=== PATIENT | male | born 1965 | race Caucasian/White ===

== ENCOUNTER 2017-04-17 19:05 | Emergency (ER) | payer OTHER, SELFPAY ==
[2017-04-17 19:05] VITALS: BP 142/97; PULSE 86; RESP 16; TEMP 36.8; O2SAT 97; BMI 31.3
== END 2017-04-17 22:03 | disposition left against medical advice (07) ==
LOC: ED 20:21
PROVIDERS: Emergency Provider Emergency Medicine; Family Provider Family Medicine; PCP Family Medicine
DX: R10.9 Unspecified abdominal pain (principal)

== ENCOUNTER 2017-04-18 04:39 | Emergency (ER) | payer OTHER, SELFPAY ==
[2017-04-18 04:40] VITALS: BP 185/99; PULSE 79; RESP 16; TEMP 36.7; O2SAT 97; BMI 31.1
--- NOTE | 2017-04-18 04:51 | CT_ITS ---
STUDY: CT ABDOMEN AND PELVIS WITH CONTRAST - VENOGRAM REASON FOR EXAM: Male, 52 years old. Left lower quadrant pain RADIATION DOSAGE (If Supplied By Facility): CTDIvol = ( 17.84 ) mGy, DLP = ( 1304.67 ) mGycm TECHNIQUE: Transaxial images were obtained from the dome of the diaphragm to the symphysis pubis without oral contrast. 100 ml of Isovue 300 contrast was administered. Multiplanar coronal and sagittal images were reformatted. CT venogram protocol utilized, with delayed images performed during venous phase. Individualized Dose Optimization Techniques Were Used For This CT. COMPARISON: None. FINDINGS: The visualized lung bases are unremarkable. The visualized portions of the heart are within normal limits. Normal liver. Normal gallbladder and extrahepatic biliary system. Normal spleen. Normal pancreas. Normal bilateral adrenal glands. Normal right kidney. Normal left kidney. Normal visualized stomach. Normal small intestine. There are multiple colonic diverticula consistent with diverticulosis. There is non-visualization of the appendix. Normal abdominal aorta. No retroperitoneal adenopathy. IVC is patent. Right gonadal vein measure mm and is patent. There are no bifurcating segments. Left gonadal vein measure mm and is patent. There are no bifurcating segments. Bilateral common iliac veins are widely patient without evidence of extrinsic compression or thrombus. Branches of the internal iliac veins show wide patency without evidence of varicosities. Bilateral external iliac veins and common femoral veins remain patent. Normal urinary bladder. Normal abdominal wall. There are diffuse degenerative changes of the visualized lumbar spine. CT/Abdomen/Pelvis W IV Cont ONLY IMPRESSION: Sigmoid diverticulosis without evidence of diverticulitis. Electronically Signed: Ayad Moise MD at 6:58 EST Tel , Service support ,
--- NOTE | 2017-04-18 05:00 | ED.VISSUMM ---
- ER Visit Summary Date of Service: 04/18/17 Chief Complaint: Left lower quadrant abdominal pain History of Present Illness: The patient is a 52 M resents to the emergency department with approximately 24 hours of left lower quadrant abdominal pain. The patient was diagnosed with influenza A Monday morning. He states he went to urgent care. He had a nasal swab which was positive for influenza. He was started on Tamiflu. He states that he took 2 doses on Monday, 2 doses on Monday, and 1 dose yesterday. He states after taking it, he began to have diffuse itching. He called his physician who instructed him to stop the medication and take Benadryl. He states that he was doing that, and he began to have cramping abdominal pain worse in his left lower quadrant. He states it comes in waves. He states he has never really had pain like this before. He did have some loose diarrhea but that has since resolved. He denies fever but has had some chills and sweats. He has had mild nausea. The pain does radiate to his flank at times. He denies dysuria or hematuria. His only surgical history is significant for prior appendectomy. Physical Examination: Vital signs reviewed General: Well-nourished, well-developed Head: Normocephalic, atraumatic Eyes: Pupils equal and reactive, extraocular muscles intact Neck, supple, no lymphadenopathy Heart: Regular rate and rhythm Respiratory: No distress, clear bilaterally Abdomen: Soft, mildly tender in the left lower quadrant without rebound or guarding, nondistended, no peritoneal signs Back: Nontender Extremities: Nontender, no edema, no cords Skin: Normal color no rash Neuro: Alert and oriented, no focal or lateralizing deficits Test Results: [] Emergency Department Course and Treatment: The patient presents with intermittent cramping left lower quadrant pain. He was recently diagnosed with influenza and did have allergic reaction to his Tamiflu. He has had some scant diarrhea. It was hard to re-create his pain on examination. IV was established. Patient was treated with fluids and analgesics with marked improvement of symptoms. His repeat exam was nontender. Patient's labs were unremarkable. I did send him for a CT with IV contrast. There is no evidence of colitis, perforation, or other dangerous process. I am unsure if this is more a side effect from his Tamiflu or even related to the influenza. The patient has had persistent diffuse itching. I am going to treat him with a short burst of steroids, Bentyl, and 1 day of analgesics. I did senior living sales counselor him concerning symptoms and reasons to return to the emergency department. I did instruct him that if his pain continues, worsens, or changes over the next 12-24 hours and he cannot get in to see his PCP, he should return. The patient is comfortable with this plan of care and will be discharged. Treatment Plan: [] Disposition: Discharge Impression:. Left lower quadrant abdominal pain-resolved 2. Allergic reaction to medication 3. Influenza This note was generated with [employer] dictation software. It may contain incorrect words, spelling, and punctuation that were not noted in review of the chart prior to signing ED Disposition - Plan for ED Patient: Chief Complaint: Abd Pain Instructions: ED Abdominal Pain Unkn Cause Prescriptions: Hydrocodone Bitart/Apap 5-325 [[place] 5/325] 1 tab PO Q6H PRN PRN 2 Days #6 tab PRN Reason: Pain Dicyclomine HCl [Bentyl] 20 mg PO TIDAC #20 cap Prednisone 10 mg PO UD #33 tab Referrals: Obey Jama MD [Primary Care Provider] -
[2017-04-18] MEDS: 0.9% Normal Saline 1,000 ML 1000 ML IV (05:07)
[2017-04-18] MEDS: Ondansetron 4 MG/2 ML Vial IV (05:07)
[2017-04-18 05:15] LABS: Bacteria 0 SEEN /hpf (None Seen); Mucous, Urine 0 SEEN /hpf (<or=2+); Red Blood Cells-Urine 0 SEEN /hpf (0-5); Squamous Epithelial Cells - UA 0 SEEN /hpf (0-5); White Blood Cells 0 SEEN /hpf (0-5)
[2017-04-18 05:18] LABS: Absolute Lymphocyte Count 2.56 X10^3/ul (0.83-4.51); Absolute Neutrophil Count 3.7 X10^3/uL (2.0-7.7); Basophil# 0.08 X10^3/uL; Eosinophil# 0.22 X10^3/uL; Eosinophils% 2.8 % (0-5); Hematocrit 43.9 % (40-54); Hemoglobin 14.9 g/dl (13.0-16.5); Lymphocyte # 2.56 X10^3/ul (4.0); Lymphocyte % 32.8 % (19-41); Mean Corp Hgb Conc 33.9 g/gl (32-36); Mean Corpuscular Volume 88.3 fL (80-94); Mean Platelet Vol. 10.2 fl (6.2-12.0); Monocyte% 15.4 % (0-10); Neutrophil # 3.74 X10^3/uL (2.7-7.7); Neutrophil % 47.9 % (47-70); Platelet Count 192 K/mm3 (150-450); RBC Distribution Width CV 12.6 % (11.6-14.6); RBC Distribution Width SD 39.9 fl (35.1-43.9); Red Blood Count 4.97 M/mm3 (4.6-6.2); White Blood Count 7.8 K/mm3 (4.4-11.0)
[2017-04-18 05:19] LABS: Differential Indicated SCAN CRITERIA MET; POSITIVE COUNT NO; POSITIVE DIFFERENTIAL NO; POSITIVE MORPHOLOGY YES
[2017-04-18 05:31] LABS: Color, Urine Yellow (Yellow); Glucose, Dipstick Normal (Normal); Ketone-Dipstick Negative (Negative); Leukocyte Esterase-Dipstick Negative /ul (Negative); Nitrite-Dipstick Negative (Negative); Occult Blood-Urine Negative /ul (Negative); Protein-Dipstick 15 mg/dl (Negative); Specific Gravity, Urine 1.015 (1.002-1.030); Urine Bilirubin Dipstick Negative (Negative); Urine Clarity Clear (Clear); Urine Urobilinogen Normal (Normal); Urine pH 6.5 (5.0 - 8.0)
[2017-04-18] MEDS: DiphenhydrAMINE 50 MG/ML Syringe 25 MG IV (05:45)
[2017-04-18 06:08] LABS: ALB/GLOB Ratio 0.8 RATIO (0.9-2.4); Albumin, Serum 3.5 g/dL (3.2-5.0); BUN 13 mg/dL (7-18); BUN/Creat Ratio 14.3 RATIO (10-20); Calcium,Total 8.8 mg/dL (8.5-10.1); Globulin 4.2 g/dL (2.2-4.2); Glucose 114 mg/dL (74-106); Protein, Total 7.7 g/dL (6.4-8.2)
[2017-04-18 06:09] LABS: Alanine Aminotransfer ALT/SGPT 117 U/L (16-61); Anion Gap 8 (5-15); Chloride 102 mmol/L (98-107); Sodium Level 136 mmol/L (136-145)
[2017-04-18 06:17] LABS: Pathologist Review May foll; Reactive Lymphocyte 2+
[2017-04-18 06:32] LABS: AST(SGOT) 65 U/L (15-37); Alkaline Phosphatase 99 U/L (45-117); EST Glomerular Filtration Rate 94 mL/min (>60); Est Glom Filt Rate - Afr Amer 114 mL/min (>60); Estimated Creatinine Clearance 109.74 ml/min; Potassium 4.1 mmol/L (3.5-5.1)
[2017-04-18 06:46] VITALS: BP 142/81; PULSE 74; RESP 14; O2SAT 98
[2017-04-18] MEDS: MethylPREDNISolone 125 MG/2 ML Vial IV (07:18)
[2017-04-18 07:25] VITALS: BP 121/70; PULSE 84; RESP 22; O2SAT 98
--- NOTE | 2017-04-18 07:26 | ED.RN ---
THIS NURSE REVIEWED D/C INSTRUCTIONS WITH PT AND VISITOR. PT VERBALIZED UNDERSTANDING OF INSTRUCTIONS. IV D/C. IV CATHETER INTACT. PT TOLERATED WELL. PT DENIES FURTHER NEEDS OR QUESTIONS AT THIS TIME. PT AMBULATES FROM ROOM ON OWN WITHOUT ASSISTANCE FROM STAFF
== END 2017-04-18 07:27 | disposition home or self-care (01) ==
PROVIDERS: Emergency Provider Emergency Medicine; Family Provider Family Medicine; PCP Family Medicine
DX: R10.32 Left lower quadrant pain (principal); J11.1 Influenza due to unidentified influenza virus with other respiratory manifestations; T37.5X5A Adverse effect of antiviral drugs, initial encounter; Y92.9 Unspecified place or not applicable; I10 Essential (primary) hypertension; K21.9 Gastro-esophageal reflux disease without esophagitis
CPT/HCPCS: 74177; 80053; 81001; 85025; 96361; 96374; 96375; 99283; J7030; Q9967; A4216; J2405

== ENCOUNTER → 2017-06-16 16:36 | Outpatient (CLI) | payer OTHER, SELFPAY ==
[2017-06-16 17:55] LABS: Absolute Neutrophil Count 6.6 X10^3/uL (2.0-7.7); Basophil# 0.02 X10^3/uL; Basophil% 0.2 % (0-1); Eosinophil# 0.39 X10^3/uL; Eosinophils% 3.6 % (0-5); Hematocrit 42.3 % (40-54); Lymphocyte % 25.1 % (19-41); Mean Corp Hgb Conc 33.1 g/gl (32-36); Mean Corpuscular Hgb 29.3 pg (27.0-32.0); Mean Corpuscular Volume 88.5 fL (80-94); Mean Platelet Vol. 9.7 fl (6.2-12.0); Monocyte# 0.98 X10^3/uL; Monocyte% 9.1 % (0-10); Neutrophil # 6.63 X10^3/uL (2.7-7.7); Neutrophil % 61.7 % (47-70); Platelet Count 381 K/mm3 (150-450); RBC Distribution Width CV 12.7 % (11.6-14.6); RBC Distribution Width SD 40.6 fl (35.1-43.9); Red Blood Count 4.78 M/mm3 (4.6-6.2); White Blood Count 10.8 K/mm3 (4.4-11.0)
[2017-06-16 18:05] LABS: POSITIVE COUNT NO; POSITIVE DIFFERENTIAL NO; POSITIVE MORPHOLOGY NO
[2017-06-16 18:15] LABS: Erythrocyte Sedimentation Rate 60 mm/hr (0-20)
[2017-06-19 16:45] LABS: ANTINUCLEAR ANTIBODIES DIRECT Negative (Negative)
== END ==
PROVIDERS: Family Provider Family Medicine; PCP Family Medicine; Visit Provider Family Medicine
DX: M06.4 Inflammatory polyarthropathy (principal)
CPT/HCPCS: 36415; 85025; 85652; 86038; 86431

== ENCOUNTER → 2020-08-24 07:12 | Outpatient (CLI) | payer OTHER, SELFPAY ==
[2020-08-24 08:10] LABS: AST(SGOT) 30 U/L (15-37); Alanine Aminotransfer ALT/SGPT 91 U/L (16-61); Albumin, Serum 3.8 g/dL (3.2-5.0); Alkaline Phosphatase 98 U/L (45-117); Anion Gap 6 (5-15); BUN 14 mg/dL (7-18); BUN/Creat Ratio 16.7 RATIO (10-20); Calcium,Total 8.9 mg/dL (8.5-10.1); Chloride 108 mmol/L (98-107); Cholesterol 192 mg/dL (200); Creatinine, Serum 0.84 mg/dL (0.70-1.30); EST Glomerular Filtration Rate 101 mL/min (>60); Est Glom Filt Rate - Afr Amer 122 mL/min (>60); Globulin 3.7 g/dL (2.2-4.2); Glucose 136 mg/dL (74-106); High Density Lipoprotein 36 mg/dL; Potassium 4.1 mmol/L (3.5-5.1); Protein, Total 7.5 g/dL (6.4-8.2); Sodium Level 140 mmol/L (136-145); Triglycerides 221 mg/dL; Very Low Density Lipoprotein 44 mg/dL (5-40)
[2020-08-24 08:22] LABS: Microalbumin,Random Urine 7.1 mg/L (NO RANGE EST.); Microalbumin:Creatinine Ratio 4.5 mg/g CRE (<30 mg/g CRE)
[2020-08-25 10:54] LABS: Hemoglobin A1c 6.1 % (3.8-5.6)
== END ==
PROVIDERS: PCP Family Medicine; Referring Provider Family Medicine; Visit Provider Family Medicine
DX: E78.5 Hyperlipidemia, unspecified (principal); I10 Essential (primary) hypertension; R73.09 Other abnormal glucose
CPT/HCPCS: 36415; 80053; 80061; 82043; 82570; 83036

== ENCOUNTER 2021-02-25 15:55 | Outpatient (CLI) | payer OTHER, SELFPAY | END 2021-02-25 23:59 | disposition short-term general hospital (02) | PROVIDERS: PCP Family Medicine; Visit Provider Nurse Practitioner Family | DX: Z11.52 Encounter for screening for COVID-19 (principal) | CPT/HCPCS: 87635; U0003; U0005 ==

== ENCOUNTER → 2021-10-01 | Outpatient (CLI) | payer OTHER, SELFPAY ==
[2021-10-01 07:35] LABS: Microalbumin,Random Urine 9.2 mg/L (NO RANGE EST.); Microalbumin:Creatinine Ratio 8.6 mg/g CRE (<30 mg/g CRE)
[2021-10-01 07:39] LABS: AST(SGOT) 43 U/L (15-37); Alanine Aminotransfer ALT/SGPT 77 U/L (16-61); Albumin, Serum 3.8 g/dL (3.2-5.0); Alkaline Phosphatase 78 U/L (45-117); Anion Gap 6 (5-15); BUN 13 mg/dL (7-18); BUN/Creat Ratio 13.6 RATIO (10-20); Calcium,Total 8.1 mg/dL (8.5-10.1); Chloride 103 mmol/L (98-107); Cholesterol 145 mg/dL (200); Creatinine, Serum 0.96 mg/dL (0.70-1.30); EST Glomerular Filtration Rate 87 mL/min (>60); Est Glom Filt Rate - Afr Amer 105 mL/min (>60); Globulin 3.8 g/dL (2.2-4.2); Glucose 96 mg/dL (74-106); Hemoglobin A1c 5.9 % (3.8-5.6); High Density Lipoprotein 38 mg/dL; PSA,Total - Annual Screen 0.49 ng/mL (0.00-4.00); Potassium 4.3 mmol/L (3.5-5.1); Protein, Total 7.6 g/dL (6.4-8.2); Sodium Level 136 mmol/L (136-145); Thyroid Stim Hormone (TSH) 1.59 uIU/mL (0.358-3.74); Triglycerides 83 mg/dL; Very Low Density Lipoprotein 17 mg/dL (5-40)
== END | disposition home or self-care (01) ==
LOC: LAB 06:08
PROVIDERS: PCP Family Medicine; Referring Provider Family Medicine; Visit Provider Family Medicine
DX: Z00.00 Encounter for general adult medical examination without abnormal findings (principal); E88.81 Metabolic syndrome and other insulin resistance; E66.9 Obesity, unspecified; I10 Essential (primary) hypertension; Z12.5 Encounter for screening for malignant neoplasm of prostate
CPT/HCPCS: 36415; 80053; 80061; 82043; 82570; 83036; 84153; 84443; G0103

== ENCOUNTER → 2022-11-30 | Outpatient (CLI) | payer OTHER, SELFPAY ==
[2022-11-30 18:00] LABS: Absolute Lymphocyte Count 3.25 X10^3/uL (0.83-4.51); Absolute Neutrophil Count 5.9 X10^3/uL (2.0-7.7); Basophil# 0.06 X10^3/uL; Basophil% 0.6 % (0-1); Eosinophil# 0.26 X10^3/uL; Eosinophils% 2.5 % (0-5); Hematocrit 44.5 % (40-54); Hemoglobin 14.4 g/dL (13.0-16.5); Lymphocyte # 3.25 X10^3/ul (0.83-4.51); Lymphocyte % 30.9 % (19-41); Mean Corp Hgb Conc 32.4 g/dL (32-36); Mean Corpuscular Hgb 29.2 pg (27.0-32.0); Mean Corpuscular Volume 90.3 fL (80-94); Mean Platelet Vol. 10.9 fl (6.2-12.0); Monocyte# 1.06 X10^3/uL; Monocyte% 10.1 % (0-10); NRBC Flagged by Analyzer 0 % (0-5); Neutrophil # 5.85 X10^3/uL (2.7-7.7); Neutrophil % 55.5 % (47-70); Platelet Count 282 K/mm3 (150-450); RBC Distribution Width CV 12.3 % (11.6-14.6); RBC Distribution Width SD 40.9 fl (35.1-43.9); Red Blood Count 4.93 M/mm3 (4.6-6.2); White Blood Count 10.5 K/mm3 (4.4-11.0)
[2022-11-30 18:16] LABS: Hemoglobin A1c 6.1 % (3.8-5.6)
[2022-11-30 18:21] LABS: Microalbumin,Random Urine 6.3 mg/L (NO RANGE EST.); Microalbumin:Creatinine Ratio 3.7 mg/g CRE (<30 mg/g CRE)
[2022-11-30 18:24] LABS: ALB/GLOB Ratio 1.1 RATIO (0.9-2.4); AST(SGOT) 15 U/L (15-37); Alanine Aminotransfer ALT/SGPT 38 U/L (16-61); Alkaline Phosphatase 100 U/L (45-117); Anion Gap 6 (5-15); BUN 19 mg/dL (7-18); BUN/Creat Ratio 20.2 RATIO (10-20); Calcium,Total 9.1 mg/dL (8.5-10.1); Chloride 107 mmol/L (98-107); Creatinine, Serum 0.94 mg/dL (0.70-1.30); EST Glomerular Filtration Rate 88 mL/min (>60); Est Glom Filt Rate - Afr Amer 107 mL/min (>60); Globulin 3.8 g/dL (2.2-4.2); Glucose 109 mg/dL (74-106); Potassium 3.7 mmol/L (3.5-5.1); Protein, Total 7.8 g/dL (6.4-8.2); Sodium Level 138 mmol/L (136-145)
== END | disposition home or self-care (01) ==
LOC: MTLAB 15:36
PROVIDERS: PCP Family Medicine; Referring Provider Family Medicine; Visit Provider Family Medicine
DX: E66.01 Morbid (severe) obesity due to excess calories (principal); I10 Essential (primary) hypertension; E88.810 Metabolic syndrome
CPT/HCPCS: 36415; 80053; 82043; 82570; 83036; 85025

== ENCOUNTER → 2022-12-08 | Outpatient (CLI) | payer OTHER, SELFPAY ==
--- NOTE | 2022-12-08 | IMM_PTH ---
PATIENT: ANTOLIN PETE LOC: [facility] U#:[id number] AGE/SX: 57/M ROOM: RE12/08/[address]: Dr. Josue Cervantes MD : 1965 BED: DIS: 12/08/2022 SPEC #: [id number] RECD: 12/12/22 13:13 STATUS: ROSENDO REQ #: [id number] ANUJ: 12/08/22 00:[address]: Josue Cervantes DEPT: IMMUNOHISTOCHEMISTRY RECD BY: Ignacia Espinoza Tissues: Skin of arm Procedures: CK5-6 (add) P53 (add) MELAN-A (add) P40 (add) S-100 (add) KI-67 (initial) PHYSICIAN & INSTITUTION [place] [id number] SPECIMEN INFORMATION: Tissue Source: Left arm nevus Clinical Info: Atypical nevus, growing Specimen Number: [id number] CPT code: 53235, 25692 x5 METHODOLOGY: Deparaffinized sections of prefer/formalin-fixed tissue or PAP/DQ stained slides are incubated with monoclonal/polyclonal antibodies/oligonucleotide probes. Localization is made via biotin free immunoperoxidase method. Appropriate controls are performed and reacted as expected. Results on target cell population are indicated in the following table: RESULTS: ANTIBODY / CLONE RESULT Melan A (A103) positive S-100 (4C4.9) positive CK5-6 (D5 & 1684) negative P40 (BC28) negative P53 (DO-7) positive, wild type pattern Ki-67 (30-9) positive, low These tests were developed and their performance characteristics determined by [facility]. They may not have been cleared or approved by the U.S. Food and Drug Administration. The FDA has determined that such clearance or approval is not necessary. The above immunohistochemical/dualISH markers are ordered and reviewed by the Pathologist. 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 See comment. SJ:senthil 12/21/2022 The specimen is sent to [facility] for expert opinion, reviewed by Dr. Taylor and the above diagnosis is rendered. The complete report is viewable in the patient's EMR. Case has been reviewed in consultation with Dr. Milan who concurs with the above diagnosis. IDC:ED
--- NOTE | 2022-12-08 12:30 | LES_PTH ---
PATIENT: ANTOLIN PETE LOC: [facility] U#:[id number] AGE/SX: 57/M ROOM: RE12/08/[address]: Dr. 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 See comment. BEVERLY:senthil 12/21/2022 COMMENT The specimen is sent to [facility] for expert opinion, reviewed by Dr. Taylor and the above diagnosis is rendered. The complete report is viewable in the patient's EMR. Immunohistochemistry ([id number]) supports the above diagnosis. Case has been reviewed in consultation with Dr. Milan who concurs with the above diagnosis. IDC:AM MICROSCOPIC DESCRIPTION Slides are reviewed. GROSS DESCRIPTION Received in fixative is one container labeled with the patient's name and designated left arm. The specimen consists of a punch biopsy of dark brown skin measuring 0.4 cm in length and 0.7 cm in diameter. The entire specimen is submitted in one cassette. / SJ:rg 12/09/2022 TC:5 CPT: 19498
== END | disposition home or self-care (01) ==
LOC: LABSPEC 15:19
PROVIDERS: PCP Family Medicine; Referring Provider Family Medicine; Visit Provider Family Medicine
DX: D22.9 Melanocytic nevi, unspecified (principal)
CPT/HCPCS: 88305; 88341; 88342

== ENCOUNTER → 2022-12-19 | Outpatient (CLI) | payer OTHER, SELFPAY ==
[2022-12-19 18:32] LABS: Hepatitis B Surface Antibody Non-Reactive; Hepatitis C Antibody Non-Reactive (Nonreactive)
== END | disposition home or self-care (01) ==
LOC: MFPLAB 16:26
PROVIDERS: PCP Family Medicine; Visit Provider Family Medicine
DX: Z11.59 Encounter for screening for other viral diseases (principal)
CPT/HCPCS: 36415; 86706; 86803

== ENCOUNTER 2023-02-03 11:07 | Day surgery (SDC) | payer OTHER, SELFPAY ==
--- NOTE | 2023-02-03 | LES_PTH ---
PATHOLOGY RESULTS PATIENT: ANTOLIN PETE [place] [facility] [id number] AGE/SX: 57/M ROOM: RE02/03/[address]: Dr. Georgette Hamilton MD : 1965 BED: DIS: 02/03/2023 SPEC #: [id number] RECD: 02/06/23 09:32 STATUS: ROSENDO CHRIS #: [id number] ANUJ: 02/03/23 00:[address]: Georgette Hamilton DEPT: SURGICAL PATHOLOGY RECD BY: Lokesh Henriquez ENTERED: 02/06/23 09:32 SP TYPE: Lesion OTHR DR: Dr. Josue Cervantes MD Tissues: Skin of forearm, NOS Procedures: Surgery Specimen Level IV HEADER OPERATION: Left arm excision lesion with intermediate closure PRE-OP DIAGNOSIS: Atypical nevus of left upper arm TISSUE SUBMITTED: Dysplastic nevus of left forearm MICROSCOPIC DIAGNOSIS Left arm lesion, excision: Scar and atypical intraepithelial melanocytic proliferation extending focally close to the peripheral biopsy margin. See comment. SJ:rg 02/21/2023 COMMENT The specimen is sent to [facility] for expert opinion, reviewed by Dr. Taylor and the above diagnosis is rendered. Dr. Taylor also commented this lesion is best regarded and treated as a melanoma in situ with re-excision with adequate margins including non-scarred skin. The complete report is viewable in the patient's EMR. Immunohistochemistry ([id number]) supports the above diagnosis. Please make reference to previous specimen ([id number]), skin, left arm, punch biopsy with diagnosis of junctional dysplastic nevus with atypical features. Case has been reviewed in consultation with Dr. Milan who concurs with the above diagnosis. IDC:AM MICROSCOPIC DESCRIPTION Slides are reviewed. GROSS DESCRIPTION Received in fixative is one container labeled with the patient's name and designated dysplastic nevus of left forearm. The specimen consists of an ovoid piece of wilson-white skin measuring 2.0 x 1.5 cm and up to 0.5 cm in thickness. An irregular light brown to dark brown lesion is noted on the surface. The specimen is inked, serially sectioned and submitted entirely in one cassette. / BEVERLY:senthil 02/06/2023 TC: CPT: 24880
--- NOTE | 2023-02-03 | IMM_PTH ---
PATHOLOGY RESULTS PATIENT: ANTOLIN PETE [place] [facility] [place][id number] AGE/SX: 57/M ROOM: RE02/03/[address]: Dr. Georgette Hamilton MD : 1965 BED: DIS: 02/03/2023 SPEC #: [id number] RECD: 02/07/23 17:01 STATUS: ROSENDO ARIES #: [id number] ANUJ: 02/03/23 00:[address]: Georgette Hamilton DEPT: IMMUNOHISTOCHEMISTRY RECD BY: Ignacia Espinoza ENTERED: 02/07/23 17:02 SP TYPE: IMMUNO OTHR DR: Dr. Josue Cervantes MD Tissues: Skin of forearm, NOS Procedures: MELAN-A (initial) S-100 (add) PHYSICIAN & INSTITUTION [place] [id number] SPECIMEN INFORMATION: Tissue Source: Dysplastic nevus of left forearm Clinical Info: Atypical nevus of left upper arm Specimen Number: [id number] CPT code: 08012, 06066 METHODOLOGY: Deparaffinized sections of prefer/formalin-fixed tissue or PAP/DQ stained slides are incubated with monoclonal/polyclonal antibodies/oligonucleotide probes. Localization is made via biotin free immunoperoxidase method. Appropriate controls are performed and reacted as expected. Results on target cell population are indicated in the following table: RESULTS: ANTIBODY / CLONE RESULT Melan A (A103) positive S-100 (4C4.9) positive These tests were developed and their performance characteristics determined by [facility]. They may not have been cleared or approved by the U.S. Food and Drug Administration. The FDA has determined that such clearance or approval is not necessary. The above immunohistochemical/dualISH markers are ordered and reviewed by the Pathologist. INTERPRETATION: Left arm lesion, excision: Scar and atypical intraepithelial melanocytic proliferation extending focally close to the peripheral biopsy margin. See comment. SJ:senthil 02/21/2023 Comment: The specimen is sent to [facility] for expert opinion, reviewed by Dr. Taylor and the above diagnosis is rendered. The complete report is viewable in the patient's EMR. Case has been reviewed in consultation with Dr. Milan who concurs with the above diagnosis. IDC:AM
[2023-02-03 11:24] VITALS: BP 145/87; PULSE 66; RESP 16; TEMP 36.9; O2SAT 99; BMI 34.6
--- NOTE | 2023-02-03 13:40 | PCM.HP.STD ---
HPI - General General Date of Admission: 02/03/23 Date of Service: 02/03/23 HPI Narrative ANTOLIN PETE, is a 57 M who presents for excision of a dysplastic nevus of his left arm [facility] [place] Medical History (Updated 12/28/22 @ 11:[address] Georgette Hamilton MD) Bone fracture High blood pressure Polyp of colon Home Medications metoprolol tartrate 100 mg tablet 100 mg PO DAILY 06/25/13 [History Last Taken 02/03/23] multivitamin,up-liqw-ilnylzpu 27 mg-0.4 mg tablet (Therems-M) 1 tab PO DAILY 06/25/13 [History Last Taken 06/24/13] apple cider vinegar 500 mg tablet 500 mg PO BID 12/28/22 [History Last Taken 02/03/23] chromium picolinate 200 mcg tablet 200 mcg PO BID 12/28/22 [History Last Taken Unknown] irbesartan 75 mg tablet 75 mg PO DAILY 12/28/22 [History Last Taken Unknown] Allergy/AdvReac Type Severity Reaction Status Date / Time oseltamivir [From Tamiflu] Allergy Rash Verified 02/03/23 11:22 Family History (Updated 12/28/22 @ 09:52 by Dena Dickey) Other Arthritis CVA (cerebral vascular accident) Colon cancer Diabetes Hypertension Psychiatric care Surgical History (Updated 12/28/22 @ 10:16 by Lynne Gaxiola) History of appendectomy Social History (Updated 12/28/22 @ 10:17 by Lynne Gaxiola) Smoking Status: Never smoker alcohol intake: current details: occasionally substance use type: does not use additional social history: pt denies vaping, denies edibles, denies ibuprofen pt uses Aspirin as needed. Vital Signs Vital Signs Vital Signs: 02/03/23 11:24 02/03/23 11:24 Temperature 98.4 F Temperature Source Temporal Pulse Rate 66 Respiratory Rate 16 Respiratory Pattern Normal Blood Pressure 145/87 H Blood Pressure Mean 106 Blood Pressure Source Monitor Blood Pressure Position Semi-Fowlers Blood Pressure Location Left Arm Pulse Ox 99 Oxygen Delivery Method Room Air Weight Weight: 262 lb 5.601 oz Body Mass Index (BMI) 34.6 Physical Exam Const alert, oriented x3, no apparent distress, average body habitus and well nourished General Appearance: cooperative and well developed Orientation / Consciousness: oriented to person, oriented to place and oriented to time HEENT head/scalp atraumatic, external ears normal and external nose normal Head and Scalp: normal to inspection, normocephalic, atraumatic and abrasion Face and Sinus: normal facial exam and face symmetric Nose: external nose normal External Ear: external ears normal External Auditory Canal: EAC's normal Mouth: lips normal Eyes PERRL, EOMs intact bilaterally and conjunctivae normal General Eye: normal appearance of both eyes Periorbital: periorbital findings normal Eyelid: eyelids normal Conjunctiva: conjunctiva normal Pupil: PERRL Neck full ROM Lymph Lymphatic: no lymphadenopathy noted Chest inspection of chest normal Breast/Axilla Palpation: no axillary lymphadenopathy Resp normal respiratory effort, normal air movement and clear to auscultation bilaterally Auscultation: clear to auscultation bilaterally Cardio regular rate, regular rhythm, S1 normal heart sound, S2 normal heart sound and no murmurs Rate: regular rate Rhythm: regular rhythm GI soft to palpation and non-tender Extremity normal to inspection and full ROM General Extremity: normal exam except as noted Skin General Skin Exam: turgor normal Wound Narrative: Ovoid pigmented patch of his left upper arm Neuro oriented x3, CN's II-XII intact bilaterally, moves all extremities, no focal motor deficits and no sensory deficits noted Sensorium / Orientation: awake, alert, oriented to person, oriented to place and oriented to time Speech: speech normal Gait (Neuro): normal gait Psych mental status grossly normal Attention / Concentration: concentration grossly intact Memory / Cognition: memory grossly intact Assessment & Plan Assessment/Plan (1) Atypical nevus of left upper arm: PLAN: Plan For excision atypical nevus of his left upper arm
[2023-02-03 13:45] VITALS: BP 147/80; BP 154/90; O2SAT 100; O2SAT 98; O2SAT 99
[2023-02-03] MEDS: Lidocaine 1% /Epi 1:100 9 ML, Sodium Bicarbonate 1 MEQ OPERA.SITE (13:59)
--- NOTE | 2023-02-03 14:27 | DCINST_ITS ---
Discharge Instructions Dressing / Incision Additional Dressing/Incision Instructions:: Leave the dressing in place. May shower over the dressing??but do not scrub. Take the oral antibiotic (Keflex) twice a day until it is finished. Follow Up Care Please Follow Up With: Georgette Hamilton MD When: In 1 week Test Results: Test results from this visit will be discussed in further detail at your follow- up appointment, if applicable. Discharge Plan Admission Attending Provider: Georgette Hamilton Primary Care Provider: Josue Cervantes Discharge Orders/Prescriptions Prescriptions: New cephalexin 500 mg capsule 500 mg PO BID 7 Days Qty: 14 0RF No Action irbesartan 75 mg tablet 75 mg PO DAILY apple cider vinegar 500 mg tablet 500 mg PO BID chromium picolinate 200 mcg tablet 200 mcg PO BID metoprolol tartrate 100 MG tablet 100 mg PO DAILY Therems-M 1 TABLET tablet 1 tab PO DAILY Referrals / Follow Up: Josue Cervantes MD [Primary Care Provider] - Disposition Disposition (needs filled in before D/C Order can be placed): Home, Self Care
--- NOTE | 2023-02-03 14:29 | PCM.OPRPT ---
Problems Associated Problem List Diagnoses (1) Atypical nevus of left upper arm: Report of Operation Date of Procedure: 02/03/23 Pre-Operative Diagnosis: Dysplastic nevus left upper arm Post-Operative Diagnosis: Same Surgery/Procedure Performed:: Excision nevus left upper arm (3.0 cm) with intermediate closure Surgeon: Georgette Hamilton Type of Anesthesia: Local Specimen's removed: Lesion left upper arm Estimated Blood Loss (mL): Minimal Description of Procedure: Patient presents today with a dysplastic nevus of his left upper arm. Informed consent was obtained. The patient was brought to the operating room and placed on the operating room table in supine position. The left upper arm is prepped and draped in the usual sterile fashion. 1% Xylocaine with epinephrine buffered with sodium bicarb was used for local anesthetic. Following this, the lesion is excised outside of the grossly positive margins. The incision is carried down through the subcutaneous tissue. This is excised and passed off the operative field to be sent to pathology. Hemostasis is controlled with cautery. The wound is then closed in layers using a Monocryl suture in the subcutaneous tissue and dermis. Skin edges were approximated with a running subcuticular Monocryl suture. Further reinforcement the closure is done with interrupted Prolene suture. Dermabond Steri-Strips and a Tegaderm were used to dress the site. He tolerated the procedure well was taken to the recovery area in an awake and stable condition. Needle and sponge counts are correct. Complications None Admit VTE Documentation VTE Mechan Device Prophylaxis: None Reason prophylaxis not ordered:: Treatment Not Indicated
== END 2023-02-03 14:59 | disposition home or self-care (01) ==
LOC: SDC 11:09 → AC 11:10
PROVIDERS: PCP Family Medicine; Referring Provider Plastic Surgery; Visit Provider Plastic Surgery
PROC: (CPT 11403; principal; 2023-02-03 12:45)
DX: D23.62 Other benign neoplasm of skin of left upper limb, including shoulder (principal); I10 Essential (primary) hypertension; L90.5 Scar conditions and fibrosis of skin; Z79.899 Other long term (current) drug therapy; Z86.010 Personal history of colon polyps
CPT/HCPCS: 11403; 12032; 00300; 88305; 88341; 88342

== ENCOUNTER → 2023-03-03 | Outpatient (CLI) | payer OTHER, SELFPAY ==
[2023-03-09 06:10] LABS: V-Zoster IgG (Immunity) > 4000 index (Immune >165)
== END | disposition home or self-care (01) ==
LOC: MFPLAB 15:58
PROVIDERS: PCP Family Medicine; Visit Provider Family Medicine
DX: Z01.84 Encounter for antibody response examination (principal)
CPT/HCPCS: 86787

== ENCOUNTER 2023-03-10 05:59 | Day surgery (SDC) | payer OTHER, SELFPAY ==
--- NOTE | 2023-03-10 | LES_PTH ---
PATHOLOGY RESULTS PATIENT: ANTOLIN PETE [place] [facility] [id number] AGE/SX: 57/M ROOM: RE03/10/[address]: Dr. Georgette Hamilton MD : 1965 BED: DIS: 03/10/2023 SPEC #: [id number] RECD: 03/10/23 13:19 STATUS: ROSENDO CHRIS #: [id number] ANUJ: 03/10/23 00:[address]: Georgette Hamilton DEPT: SURGICAL PATHOLOGY RECD BY: Lokesh Henriquez ENTERED: 03/10/23 13:19 SP TYPE: Lesion OTHR DR: Dr. 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 Ulceration, acute and chronic inflammation, granulation tissue reaction and foreign body giant cell reaction consistent with previous biopsy site. SJ:rg 03/14/2023 COMMENT Please make reference to previous specimen ([id number]), left arm lesion, excision with diagnosis of scar and atypical intraepithelial melanocytic proliferation extending focally close to the peripheral biopsy margin. MICROSCOPIC DESCRIPTION Slides are reviewed. GROSS DESCRIPTION Received in fixative is one container labeled with the patient's name and designated melanoma in situ left arm. The specimen consists of a piece of wilson-white skin ellipse measuring 3.2 x 2.5 cm and up to 1.0 cm in thickness. The specimen is oriented by sutures as follows: two sutures - superior aspect, one suture - radial aspect. The specimen is inked as follows: superior tip - yellow, inferior tip - green, medial/ulnar aspect - black, radial/lateral aspect - blue. The skin surface shows an area of ulceration measuring 2.2 x 1.1 cm. The specimen is serially sectioned and submitted entirely in four cassettes. Cassette 1 contains the superior and inferior tips. / BEVERLY:senthil 03/13/2023 TC:5 CPT: 74727
[2023-03-10 06:26] VITALS: BP 122/70; PULSE 63; RESP 17; TEMP 36.6; O2SAT 96; BMI 34.7
--- NOTE | 2023-03-10 07:27 | HP.PCM_ITS ---
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 The previous excision had positive margins and therefore he presents for reexcision to attempt clear margins. [facility] Narrative ANTOLIN PETE, is a 57 M who presents for melanoma in situ excision. [facility] Medical History Bone fracture High blood pressure Polyp of colon Home Medications metoprolol tartrate 100 mg tablet 100 mg PO DAILY 06/25/13 [History Last Taken 03/10/23] multivitamin,[id number] 27 mg-0.4 mg tablet (Therems-M) 1 tab PO DAILY 06/25/13 [History Last Taken 03/10/23] apple cider vinegar 500 mg tablet 500 mg PO BID 12/28/22 [History Last Taken 03/10/23] chromium picolinate 200 mcg tablet 200 mcg PO BID 12/28/22 [History Last Taken 03/09/23] irbesartan 75 mg tablet 75 mg PO DAILY 12/28/22 [History Last Taken 03/10/23] cephalexin 500 mg capsule 500 mg PO BID 7 days #14 caps 02/03/23 [Rx Last Taken Unknown] Allergy/AdvReac Type Severity Reaction Status Date / Time oseltamivir [From Tamiflu] Allergy Rash Verified 03/10/23 06:24 Family History Other Arthritis CVA (cerebral vascular accident) Colon cancer Diabetes Hypertension Psychiatric care Surgical History History of appendectomy Social History Smoking Status: Never smoker alcohol intake: current details: occasionally substance use type: does not use additional social history: pt denies vaping, denies edibles, denies ibuprofen pt uses Aspirin as needed. Vital Signs Vital Signs Vital Signs: 03/10/23 06:26 03/10/23 06:26 Temperature 98 F Temperature Source Temporal Pulse Rate 63 Respiratory Rate 17 Respiratory Pattern Normal Blood Pressure 122/70 H Blood Pressure Mean 87 Blood Pressure Source Monitor Blood Pressure Position Semi-Fowlers Blood Pressure Location Left Arm Pulse Ox 96 Oxygen Delivery Method Room Air Weight Weight: 262 lb 12.656 oz Body Mass Index (BMI) 34.7 Physical Exam Const alert, oriented x3, no apparent distress, average body habitus and well nourished General Appearance: cooperative and well developed Orientation / Consciousness: oriented to person, oriented to place and oriented to time HEENT head/scalp atraumatic, external ears normal and external nose normal Head and Scalp: normal to inspection, normocephalic, atraumatic and abrasion Face and Sinus: normal facial exam and face symmetric Nose: external nose normal External Ear: external ears normal External Auditory Canal: EAC's normal Mouth: lips normal Eyes PERRL, EOMs intact bilaterally and conjunctivae normal General Eye: normal appearance of both eyes Periorbital: periorbital findings normal Eyelid: eyelids normal Conjunctiva: conjunctiva normal Pupil: PERRL Neck full ROM Lymph Lymphatic: no lymphadenopathy noted Chest inspection of chest normal Breast/Axilla Palpation: no axillary lymphadenopathy Resp normal respiratory effort, normal air movement and clear to auscultation bilaterally Auscultation: clear to auscultation bilaterally Cardio regular rate, regular rhythm, S1 normal heart sound, S2 normal heart sound and no murmurs Rate: regular rate Rhythm: regular rhythm GI soft to palpation and non-tender Extremity normal to inspection and full ROM General Extremity: normal exam except as noted Skin Skin Narrative: Evidence of previous wound left arm General Skin Exam: turgor normal Neuro oriented x3, CN's II-XII intact bilaterally, moves all extremities, no focal motor deficits and no sensory deficits noted Sensorium / Orientation: awake, alert, oriented to person, oriented to place and oriented to time Speech: speech normal Gait (Neuro): normal gait Psych mental status grossly normal Attention / Concentration: concentration grossly intact Memory / Cognition: memory grossly intact Assessment & Plan Assessment/Plan (1) 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
[2023-03-10 07:32] VITALS: BP 128/71; BP 136/72; O2SAT 93; O2SAT 94; O2SAT 95; O2SAT 96; O2SAT 98
[2023-03-10] MEDS: Lidocaine 1% /Epi 1:100 9 ML, Sodium Bicarbonate 1 MEQ OPERA.SITE (07:47)
--- NOTE | 2023-03-10 08:46 | OP.PCM_ITS ---
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 The margins were positive and therefore he comes for reexcision to attempt to obtain for clear margins. The patient is aware that further surgery may be needed depending on the final pathology. The patient was brought to the operating room and placed on the operating room table in the supine position with the left arm extended. The left arm is prepped and draped in the usual sterile fashion. 1% Xylocaine with epinephrine buffered with sodium bicarb was used for local anesthetic. Following this, a margin of 1.0 cm is marked around the periphery. The excision extends from 0.5- 1 point centimeter around the periphery. This is carried down through the subcutaneous tissue beneath the level of the previous excision. Hemostasis is controlled with cautery. The specimen is marked for orientation with silk suture. The wound is then closed initially using a silk suture to approximate the wound edges to facilitate closure. These are sequentially removed as the tissue is closed. A 3-0 Monocryl suture is used to approximate subcutaneous tissue and dermis in [id number] fashion. Skin edges were then approximated with a running subcuticular Monocryl suture. Further reinforcement the closure was performed with 4-0 Prolene suture in an interrupted fashion. Dermabond is applied to the incision along with Steri-Strips and a Tegaderm. He tolerated the procedure well was taken to the recovery area in an awake and stable condition. Needle and sponge counts are correct. Complications None Admit VTE Documentation VTE Mechan Device Prophylaxis: None Reason prophylaxis not ordered:: Treatment Not Indicated
--- NOTE | 2023-03-10 08:53 | DCINST_ITS ---
Discharge Instructions Dressing / Incision Additional Dressing/Incision Instructions:: May shower over the site, but do not scrub. Limit flexing of the arm to prevent disruption of the incision. Take the oral antibiotic (Keflex) 2 times a day until finished. Follow Up Care Please Follow Up With: Georgette Hamilton MD When: In 1 to 2 weeks Test Results: Test results from this visit will be discussed in further detail at your follow- up appointment, if applicable. Discharge Plan Admission Attending Provider: Georgette Hamilton Primary Care Provider: Josue Cervantes Discharge Orders/Prescriptions Prescriptions: New cephalexin 500 mg capsule 500 mg PO BID 7 Days Qty: 14 0RF No Action irbesartan 75 mg tablet 75 mg PO DAILY apple cider vinegar 500 mg tablet 500 mg PO BID chromium picolinate 200 mcg tablet 200 mcg PO BID metoprolol tartrate 100 MG tablet 100 mg PO DAILY Therems-M 1 TABLET tablet 1 tab PO DAILY cephalexin 500 mg capsule 500 mg PO BID 7 Days Qty: 14 0RF Referrals / Follow Up: Josue Cervantes MD [Primary Care Provider] - Disposition Disposition (needs filled in before D/C Order can be placed): Home, Self Care
== END 2023-03-10 09:10 | disposition home or self-care (01) ==
LOC: SDC 06:02 → AC 06:03
PROVIDERS: PCP Family Medicine; Referring Provider Plastic Surgery; Visit Provider Plastic Surgery
PROC: (CPT 12032; principal; 2023-03-10 07:20)
DX: D03.62 Melanoma in situ of left upper limb, including shoulder (principal); Z80.0 Family history of malignant neoplasm of digestive organs
CPT/HCPCS: 12032; 88305

== ENCOUNTER → 2023-05-29 | Outpatient (CLI) | payer OTHER, SELFPAY ==
--- NOTE | 2023-05-29 17:00 | RAD_ITS ---
STUDY: X-RAY - LEFT FEMUR REASON FOR STUDY: Male, 58 years old. L lateral leg pain, distal and gt; proximal yet only pain if extending TECHNIQUE: 2 view(s) of the femur. COMPARISON: None. FINDINGS: Normal visualized femur. Normal visualized soft tissue structure. RAD/Femur Min 2 Views IMPRESSION: Normal x-ray examination of the femur. Electronically Signed: Aneudy Carpio MD at 23:59 EDT ,
--- NOTE | 2023-05-29 17:00 | RAD_ITS ---
STUDY: X-RAY - PELVIS REASON FOR EXAM: Male, 58 years old. L lateral leg pain, distal and gt; proximal yet only pain if extending TECHNIQUE: One view of the pelvis was obtained. COMPARISON: None. FINDINGS: There is a non-specific bowel gas pattern. Normal visualized soft tissue structures. Normal bilateral iliac wings, sacroiliac joints and visualized sacrum. Normal visualized bilateral superior and inferior pubic rami. There are degenerative changes of the pubic symphysis with articular narrowing and sclerosis. Normal ischial tuberosities. Normal visualized right femoral head. Normal right acetabulum. Normal right hip joint. Normal visualized left femoral head. Normal left acetabulum. Normal left hip joint. RAD/Pelvis 1 or 2 Views IMPRESSION: Pubic symphysitis. Electronically Signed: Aneudy Carpio MD at 23:59 EDT ,
== END | disposition home or self-care (01) ==
LOC: MTRAD 16:59
PROVIDERS: PCP Family Medicine; Referring Provider Family Medicine; Visit Provider Family Medicine
DX: M79.605 Pain in left leg (principal)
CPT/HCPCS: 72170; 73552

== ENCOUNTER → 2024-10-23 | Outpatient (CLI) | payer OTHER, SELFPAY ==
[2024-10-23 18:32] LABS: PSA,Total - Annual Screen 1.10 ng/mL (0.02-4.00)
== END | disposition home or self-care (01) ==
LOC: MFPLAB 16:32
PROVIDERS: PCP Family Medicine
DX: R97.20 Elevated prostate specific antigen [PSA] (principal); I10 Essential (primary) hypertension
CPT/HCPCS: 36415; 84153; G0103

== ENCOUNTER → 2024-12-11 | Outpatient (CLI) | payer OTHER, SELFPAY ==
--- NOTE | 2024-12-11 16:26 | RAD_ITS ---
PROCEDURE: HIP, UNI W/ PELVIS 2-3 VIEWS 12/11/2024 REASON FOR EXAM: PAIN WITH MILD TRAUMA TECHNIQUE: Procedure Code: RADHP Modality: DX Procedure: HIP, UNI W/ PELVIS 2-3 VIEWS Laterality: Right COMPARISON: None FINDINGS: The bony pelvis is intact. The SI joints are normal. There is no degenerative disc disease, L3-4 through L5-S1. There are no soft tissue abnormalities. AP view of the left hip demonstrates no evidence of fracture or dislocation. There is no significant arthropathy. AP and lateral views of the right hip demonstrate no evidence of fracture or dislocation. There is no significant arthropathy. The periarticular soft tissues are normal. RAD/HIP, UNI W/ Pelvis 2-3 Views IMPRESSION: There is no significant abnormality of the right hip. Other findings as noted. Reading Location: [place] [id number]
--- NOTE | 2024-12-11 16:26 | RAD_ITS ---
PROCEDURE: HIP, UNI W/ PELVIS 2-3 VIEWS 12/11/2024 REASON FOR EXAM: PAIN WITH MILD TRAUMA TECHNIQUE: Procedure Code: RADHP Modality: DX Procedure: HIP, UNI W/ PELVIS 2-3 VIEWS Laterality: Right COMPARISON: None FINDINGS: The bony pelvis is intact. The SI joints are normal. There is no degenerative disc disease, L3-4 through L5-S1. There are no soft tissue abnormalities. AP view of the left hip demonstrates no evidence of fracture or dislocation. There is no significant arthropathy. AP and lateral views of the right hip demonstrate no evidence of fracture or dislocation. There is no significant arthropathy. The periarticular soft tissues are normal. RAD/HIP, UNI W/ Pelvis 2-3 Views IMPRESSION: There is no significant abnormality of the right hip. Other findings as noted. Reading Location: [place] [id number]
[2024-12-11 18:35] LABS: Hematocrit 45.8 % (40-54); Hemoglobin 15.6 g/dL (13.0-16.5); Immature Granulocytes Count 0.050 X10^3/uL (0.0-0.0); Mean Corp Hgb Conc 34.1 g/dL (32-36); Mean Corpuscular Volume 86.9 fL (80-94); Mean Platelet Vol. 10.8 fl (6.2-12.0); NRBC Flagged by Analyzer 0 % (0-5); Platelet Count 269 K/mm3 (150-450); RBC Distribution Width CV 12.5 % (11.6-14.6); RBC Distribution Width SD 39.4 fl (35.1-43.9); Red Blood Count 5.27 M/mm3 (4.6-6.2); White Blood Count 9.5 K/mm3 (4.4-11.0)
[2024-12-11 18:47] LABS: AST(SGOT) 42 U/L (<=37); Alanine Aminotransfer ALT/SGPT 108 U/L (<=46); Albumin, Serum 4.7 g/dL (3.5-5.0); Alkaline Phosphatase 100 U/L (40-129); Anion Gap 12 (5-15); BUN 21 mg/dL (4-19); BUN/Creat Ratio 27.5 RATIO (10-20); Calcium,Total 9.3 mg/dL (7.6-11.0); Carbon Dioxide 22.8 mmol/L (21.0-32.0); Chloride 105 mmol/L (98-108); Globulin 3.0 g/dL (2.2-4.2); Glucose 105 mg/dL (70-99); Potassium 4.1 mmol/L (3.3-5.1)
== END | disposition home or self-care (01) ==
LOC: MTLAB 16:26
PROVIDERS: PCP Family Medicine; Referring Provider Family Medicine; Visit Provider Family Medicine
DX: M25.551 Pain in right hip (principal); R53.83 Other fatigue
CPT/HCPCS: 36415; 73502; 80053; 84443; 85025